=== PATIENT | male | born 1945 | race Hispanic/Latino ===

== ENCOUNTER 2016-11-20 00:25 | Emergency (ER) | payer OTHER ==
[2016-11-20 00:31] VITALS: BMI 28.1
[2016-11-20 00:39] VITALS: TEMP 98.3
[2016-11-20] MEDS ORDERED: Lidocaine 1% Inj (20ml) IJ STA (00:39)
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
--- NOTE | 2016-11-20 02:19 | CT ---
EXAM: CT Cervical Spine Without Intravenous Contrast CLINICAL HISTORY: 71 years old, male; Injury or trauma; Fall; Initial encounter; Blunt trauma; Additional info: Fall head trauma TECHNIQUE: Axial computed tomography images of the cervical spine without intravenous contrast. All CT scans at this facility use one or more dose reduction techniques, viz.: automated exposure control; ma/kV adjustment per patient size (including targeted exams where dose is matched to indication; i.e. head); or iterative reconstruction technique. Coronal and sagittal reformatted images were created and reviewed. COMPARISON: No relevant prior studies available. FINDINGS: Vertebrae: No acute fracture. Degenerative retrolithesis of C4 on C5 and C5 on C6. Degenerative retrolithesis of lower cervical spine. Facet osteoarthrosis within cervical spine. Discs/spinal canal/neural foramina: Mild degenerative disc disease at C3-C4, C6-C7 levels. Severe degenerative disc disease at C4-C5, C5-C6 levels. Disc herniations within mid to lower cervical spine, suboptimally evaluated. [id number]-[id number] indentation thecal sac/cord at C5-C6 level. Multilevel neuroforaminal narrowing. Soft tissues: Metallic density within LEFT neck. Vasculature: Atherosclerotic disease of visualized arteries. Lung apices: Unremarkable as visualized. IMPRESSION: 1. No fracture. 2. Incidental/non-acute findings are described above.
[2016-11-20] MEDS ORDERED: TDAP Vaccine 0.5 mL Syr IM ONE (02:36)
[2016-11-20 07:39] VITALS: BP 114/64; PULSE 88; RESP 18; O2SAT 99
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
--- NOTE | 2016-11-20 14:22 | CARD ---
APPROVED REPORT EKG Measurement Heart [id number] <Conclusion> Normal sinus rhythm Left anterior fascicular block Septal infarct, age undetermined Prolonged QT Abnormal ECG
== END 2016-11-20 07:38 | disposition home or self-care (01) ==
LOC: ED 00:25
DX: S01.21XA Laceration without foreign body of nose, initial encounter (principal); S01.511A Laceration without foreign body of lip, initial encounter; S20.212A Contusion of left front wall of thorax, initial encounter; W01.0XXA Fall on same level from slipping, tripping and stumbling without subsequent striking against object, initial encounter; Y92.410 Unspecified street and highway as the place of occurrence of the external cause; F10.129 Alcohol abuse with intoxication, unspecified; Z23 Encounter for immunization
CPT/HCPCS: 12011; 70450; 71020; 71100; 72125; 82948; 90471; 90715; 93005; 96372; 99282; J1885

== ENCOUNTER 2016-11-23 22:52 | Inpatient (IN) | payer OTHER ==
[2016-11-23 23:31] VITALS: BMI 27.3
--- NOTE | 2016-11-24 00:03 | ED PDOC ---
Arrival/HPI - General Historian: Patient, Family - History of Present Illness Time/Duration: 24 hours Symptom Onset: Sudden Symptom Course: Unchanged Quality: Aching, Stabbing Severity Level: 10 Activities at Onset: Rest, Light Context: Home - General Chief Complaint: Back Pain Time Seen by Provider: 11/23/16 23:16 - History of Present Illness Narrative History of Present Illness (Text): 11/24/16 00:00 Mr. 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 Patient states that yesterday he suddenly felt a sharp pain on his right posterior ribs while he was resting in bed. Patient reports it as a constant pain with no radiation and reports no alleviating/aggravating factors. He states that this pain is new and he doesn't believe that this is related to a fall he suffered last week. He denies fever, chills, headache, changes in his vision, chest pain, palpitations, SOB, cough, wheezing, abdominal pain, N/V, diarrhea, constipation, burning with urination, or any numbness/tingling/weakness of any extremity. (JOSH MONDRAGON) Past Medical History - Provider Review Nursing Documentation Reviewed: Yes - Travel History Have you recently traveled outside [place] w/in the past 3 mons?: No - Past History Past History: Non-Contributing - Infectious Disease Hx of Infectious Diseases: None - Tetanus Immunization Tetanus Immunization: Unknown - Cardiac Hx Cardiac Disorders: No - Pulmonary Hx Respiratory Disorders: No - Neurological Hx Neurological Disorder: No - HEENT Hx HEENT Disorder: Yes ([place]ING GLASSES) - Renal Hx Renal Disorder: No - Endocrine/Metabolic Hx Endocrine Disorders: Yes Hx Diabetes Mellitus Type 2: Yes - Hematological/Oncological Hx Blood Disorders: Yes Hx Cancer: Yes (liver) - Integumentary Hx Dermatological Disorder: No - Musculoskeletal/Rheumatological Hx Falls: No - Gastrointestinal Hx Gastrointestinal Disorders: No - Genitourinary/Gynecological Hx Genitourinary Disorders: No - Psychiatric Hx Psychophysiologic Disorder: No Hx Substance Use: No - Past Surgical History Past Surgical History: Non-Contributing - Surgical History Hx Orthopedic Surgery: Yes Other/Comment: Y90 liver radiation, last session october 2016 - Anesthesia Hx Anesthesia: Yes Hx Anesthesia Reactions: No Hx Malignant Hyperthermia: No - Suicidal Assessment Feels Threatened In Home Enviroment: No Family/Social History - Physician Review Nursing Documentation Reviewed: Yes Family/Social History: Unknown Family HX Smoking Status: Never Smoked Hx Alcohol Use: Yes Hx Substance Use: No Hx Substance Use Treatment: No Allergies/Home Meds Allergies/Adverse Reactions: Allergies No Known Allergies Allergy (Verified 11/23/16 23:36) Home Medications: Home Meds Medication Instructions Recorded Confirmed Unobtainable 11/24/16 11/24/16 Review of Systems - Physician Review All systems were reviewed & negative as marked: Yes - Review of Systems Constitutional: Normal. absent: Fevers, Night Sweats Eyes: Normal. absent: Vision Changes ENT: Normal Respiratory: Normal. absent: SOB, Cough, Wheezing Cardiovascular: Normal. absent: Chest Pain, Palpitations Gastrointestinal: Normal. absent: Abdominal Pain, Constipation, Diarrhea, Nausea, Vomiting Genitourinary Male: Normal. absent: Dysuria Musculoskeletal: Other (Right sided rib pain). absent: Normal, Back Pain, Neck Pain Skin: Normal. absent: Rash Neurological: Normal. absent: Headache Endocrine: Normal Hemo/Lymphatic: Normal Psychiatric: Normal Physical Exam Vital Signs Reviewed: Yes Temperature: Afebrile Blood Pressure: Normal Pulse: Regular Respiratory Rate: Normal Appearance: Positive for: Well-Appearing, Non-Toxic, Uncomfortable Pain Distress: Mild Mental Status: Positive for: Alert and Oriented X 3 - Systems Exam Head: Present: Atraumatic, Normocephalic Pupils: Present: PERRL Extroacular Muscles: Present: EOMI Conjunctiva: Present: Normal Mouth: Present: Moist Mucous Membranes Neck: Present: Normal Range of Motion, Trachea Midline. No: Meningeal Signs, MIDLINE TENDERNESS, Paraspinal Tenderness, JVD, Lymphadenopathy Respiratory/Chest: Present: Clear to Auscultation, Good Air Exchange, Tender to Palpation (Right posterior ribs 7-12 TTP). No: Respiratory Distress, Accessory Muscle Use, Wheezes, Decreased Breath Sounds, Rales, Retracting, Rhonchi, Tachypneic Cardiovascular: Present: Regular Rate and Rhythm, Normal S1, S2. No: Murmurs Abdomen: Present: Normal Bowel Sounds. No: Tenderness, Distention, Peritoneal Signs Back: Present: CVA Tenderness (Right), Paraspinal Tenderness (Right sided thoracic ). No: Normal Inspection, Midline Tenderness Upper Extremity: Present: Normal Inspection. No: Cyanosis, Edema Lower Extremity: Present: Normal Inspection. No: Edema Neurological: Present: GCS=15, CN II-XII Intact, Speech Normal Skin: Present: Warm, Dry, Normal Color. No: Rashes Psychiatric: Present: Alert, Oriented x 3, Normal Insight, Normal Concentration Vital Signs Temp Pulse Resp BP Pulse Ox 11/24/16 04:09 95 H 20 122/78 96 11/23/16 23:34 98.8 F 84 20 144/76 96 Medical Decision Making - Lab Interpretations I have reviewed the lab results: Yes - RAD Interpretation Svp Group Director: Radiologist ED Course and Treatment: Patient Seen With Resident: In agreement with resident note which contains more details about the patient. Patient was seen and evaluated with resident. Came up with plan and treatment together. 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 Paredes and patient to be admitted to his service with acute rib fracture. Patient is aware and agrees with plan. (JOSH MONDRAGON ) - Lab Interpretations Lab Results: 11/24/16 04:03 11/24/16 04:03 Lab Results 11/24/16 04:03: Sodium 139, Potassium 4.6, Chloride 104, Carbon Dioxide 25, Anion Gap 15, BUN 8, Creatinine 0.5 L, Est GFR ( Amer) > 60, Est GFR (Non -Af Amer) > 60, Random Glucose 375 H* D, Calcium 9.1, Total Bilirubin 1.3, AST 93 H, ALT 82 H, Alkaline Phosphatase 285 H, Total Protein 7.1, Albumin 3.4, Globulin 3.7, Albumin/Globulin Ratio 0.9 L 11/24/16 04:03: PT 16.8 H, INR 1.51 H, APTT 37.0 H 11/24/16 04:03: WBC 6.5 D, RBC 4.20, Hgb 13.5 L, Hct 39.2 L, MCV 93.3, MCH 32.1 , MCHC 34.4, RDW 15.4 H, Plt Count 152, MPV 11.0, Gran % 86.7 H, Lymph % (Auto) 8.1 L, [place] % (Auto) 5.0, Eos % (Auto) 0.0 L, Baso % (Auto) 0.2, Gran # 5.60, Lymph # 0.5 L, [place] # 0.3, Eos # 0.0, Baso # 0.01 - RAD Interpretation Narrative RAD Interpretations (Text): 11/24/16 05:21 Nondisplaced fracture of right 9th rib (JOSH MONDRAGON) Radiology Orders: 11/24/16 00:03 RIBS RIGHT [RAD] Stat 11/24/16 00:05 CHEST TWO VIEWS (PA/LAT) [RAD] Stat 11/24/16 01:43 CHEST W/O CONTRAST [CT] Stat - Medication Orders Current Medication Orders: Discontinued Medications Acetaminophen (Tylenol 325mg Tab) 975 mg PO STAT STA Stop: 11/24/16 00:06 Last Admin: 11/24/16 00:52 Dose: Benzonatate (Tessalon Perles) 100 mg PO ONCE ONE Stop: 11/24/16 01:54 Last Admin: 11/24/16 02:23 Dose: 100 mg Cyclobenzaprine HCl (Flexeril) 5 mg PO STAT STA Stop: 11/24/16 00:06 Last Admin: 11/24/16 00:26 Dose: 5 mg Insulin Human Regular (Humulin R) 4 units IV STAT STA Stop: 11/24/16 05:15 Ketorolac Tromethamine (Toradol) 30 mg IM STAT STA Stop: 11/24/16 00:06 Last Admin: 11/24/16 00:26 Dose: 30 mg MAR Pain Assessment Document 11/24/16 00:26 SS (Rec: 11/24/16 00:27 SS [id number]) Pain Reassessment Is this a pain reassessment? No Sleep Is patient sleeping during reassessment? No Presence of Pain Presence of Pain Yes Location Left, Right or Bilateral Right Upper or Lower Lower Pain Location Body Site Back IM Administration Charges Document 11/24/16 00:26 SS (Rec: 11/24/16 00:27 [id number] Charges for Administration # of IM Administrations 1 Ketorolac Tromethamine (Toradol) 30 mg IVP STAT STA Stop: 11/24/16 03:37 Last Admin: 11/24/16 04:18 Dose: 30 mg MAR Pain Assessment Document 11/24/16 04:18 SS (Rec: 11/24/16 04:18 [id number] Pain Reassessment Is this a pain reassessment? No Sleep Is patient sleeping during reassessment? No Presence of Pain Presence of Pain Yes Location Left, Right or Bilateral Right Pain Location Body Site Back IVP Administration Document 11/24/16 04:18 SS (Rec: 11/24/16 04:18 [id number] Charges for Administration # of IVP Administrations 1 Lidocaine (Lidoderm) 1 ea TD STAT STA Stop: 11/24/16 00:06 Last Admin: 11/24/16 00:26 Dose: 1 ea MAR Transdermal Patch Site Document 11/24/16 00:26 SS (Rec: 11/24/16 00:26 [id number] Transdermal Patch Site Transdermal Patch Site Right Lower Back Disposition/Present on Arrival - Present on Arrival Any Indicators Present on Arrival: No History of DVT/PE: No History of Uncontrolled Diabetes: No Urinary Catheter: No History of Decub. Ulcer: No History Surgical Site Infection Following: None - Disposition Have Diagnosis and Disposition been Completed?: Yes Disposition Time: 05:21 - Disposition Diagnosis: Right rib fracture Disposition: HOSPITALIZED Patient Problems: Current Active Problems Problem Status Onset Right rib fracture Acute Condition: STABLE Referrals: Bhavin Paredes MD [Primary Care Provider] - Follow up with primary Forms: [employer] ([place])
[2016-11-24] MEDS ORDERED: Lidocaine 5% Patch TD STA (00:05)
--- NOTE | 2016-11-24 03:20 | CT ---
EXAM: CT Chest Without Intravenous Contrast CLINICAL HISTORY: 71 years old, male; Pain; Other: Rib pain; Additional info: R rib pain TECHNIQUE: Axial computed tomography images of the chest without intravenous contrast. All CT scans at this facility use one or more dose reduction techniques, viz.: automated exposure control; ma/kV adjustment per patient size (including targeted exams where dose is matched to indication; i.e. head); or iterative reconstruction technique. MIP reconstructed images were created and reviewed. Coronal and sagittal reformatted images were created and reviewed. COMPARISON: None EXAM: FINDINGS: Lungs: No mass. No consolidation. Trace right-sided pleural effusion, with adjacent compressive atelectasis. Pleural spaces: No significant effusion. No pneumothorax. Heart: No cardiomegaly. No significant pericardial effusion. Vasculature: No aortic aneurysm. Lymph nodes: No enlarged lymph nodes. Bones: A fragment of increased attenuation is identified within the left lateral lower rib. A nondisplaced fracture is identified within the posterior lateral margin of the right ninth rib without significant callus formation. Within the upper abdomen: The liver is nodular in contour, and heterogeneous in attenuation.. IMPRESSION: Right ninth rib fracture, nondisplaced.
[2016-11-24 04:23] LABS: BASO # 0.01 K/mm3 (0.0-2.0); BASO % 0.2 % (0.0-3.0); GRAN # 5.6 (1.4-6.5); GRAN % 86.7 % (50.0-68.0); HEMATOCRIT 39.2 % (42.0-52.0); LYMPH # 0.5 (1.2-3.4); LYMPH % 8.1 % (22.0-35.0); MEAN CELL VOLUME 93.3 fl (80.0-105.0); MEAN CORPUSCULAR HEMOGLOBIN 32.1 pg (25.0-35.0); MEAN CORPUSCULAR HGB CONC 34.4 g/dl (31.0-37.0); MONO # 0.3 (0.1-0.6); RED CELL DISTRIBUTION WIDTH 15.4 % (11.5-14.5); WHITE BLOOD COUNT 6.5 10^3/ul (4.5-11.0)
[2016-11-24 04:32] LABS: INR 1.51 (0.93-1.08)
[2016-11-24 04:33] LABS: ALB/GLOB RATIO 0.9 (1.1-1.8); ALKALINE PHOSPHATASE 285 U/L (38-126); ALT/SGPT 82 U/L (7-56); AST/SGOT 93 U/L (17-59); BILIRUBIN,TOTAL 1.3 mg/dL (0.2-1.3); BLOOD UREA NITROGEN 8 mg/dL (7-21); CALCIUM 9.1 mg/dL (8.4-10.5); CARBON DIOXIDE 25 mmol/L (21-33); CHLORIDE 104 mmol/L (98-107); GFR AFRICAN-AMERICAN > 60; POTASSIUM 4.6 mmol/L (3.6-5.0); SODIUM 139 mmol/L (132-148); TOTAL PROTEIN 7.1 g/dL (5.8-8.3)
[2016-11-24 05:13] LABS: GLUCOSE,RANDOM 375 mg/dL (70-110)
[2016-11-24] MEDS ORDERED: Insulin Regular 1 UNITS/0.01 ML ML IV STA (05:14)
--- NOTE | 2016-11-24 08:35 | RAD ---
HISTORY: Right rib pain COMPARISON: No prior. TECHNIQUE: Chest PA and lateral FINDINGS: LUNGS: No active pulmonary disease. PLEURA: No significant pleural effusion identified. No pneumothorax apparent. CARDIOVASCULAR: Normal. OSSEOUS STRUCTURES: No significant abnormalities. VISUALIZED UPPER ABDOMEN: Normal. OTHER FINDINGS: None. IMPRESSION: No active disease.
[2016-11-24] MEDS ORDERED: Barium Sulfate Susp 2.1% w/v, 2.0% w/w 450 mL Bottle PO ONE (09:42)
[2016-11-24] MEDS: Thiamine 100 mg/ml Inj IM SCH (10:08)
--- NOTE | 2016-11-24 10:18 | RAD ---
PROCEDURE: HISTORY: Right rib pain COMPARISON: Chest x-ray 11/24/2016 TECHNIQUE: Three views FINDINGS: There is a posterior inferior right rib fracture number is indeterminate possibly the possibly the 9th or the 8th rib. A rudimentary ribs at the thoracolumbar junction are noted. The rib fracture is at a prominent right lateral marginal osteophyte at the inferior thoracic spine level. Gross deformity of the right glenohumeral joint -hypertrophic arthrosis and a prior remote trauma are suspect. The appearance of the lateral clavicle may be due to projectional effects IMPRESSION: Nondisplaced posterior inferior right rib fracture either the 9th or 8th rib. No gross pneumothorax Deformed right shoulder
[2016-11-24] MEDS: Insulin Reg-LOW-Coverage SC SCH ×2 (11:48→17:15)
[2016-11-24] MEDS ORDERED: Iohexol 350 MG/100 ML VIAL ONE (12:34)
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
[2016-11-25] MEDS: Insulin Reg-LOW-Coverage SC SCH ×5 (01:29→21:55)
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
[2016-11-25] MEDS: Thiamine 100 mg/ml Inj IM SCH (09:40)
[2016-11-25] MEDS: Oxycodone/Acetaminophen 5/325 mg Tab PO PRN (17:29)
--- NOTE | 2016-11-25 19:57 | PN ---
SUBJECTIVE: A 71-year-old white male, history of hepatoma, history of liver cirrhosis, history of non-insulin dependent diabetes mellitus. The patient came after losing the strength in his legs, falling, lacerating his nose and left face and injuring his ribs with right rib fractures. The patient has had a recent CT showing possible increasing size of the hepatic masses consistent with hepatoma. He was status post Y-90 treatment, also increasing periaortic and intraabdominal lymph node sizes. The patient's blood sugars are poorly controlled. His vital signs are stable today. He is still complaining of severe pain. The patient is scheduled for an MRI of the liver and abdomen. Plan is to control pain, physical therapy, eventually control of his blood sugar and eventually discharged home in good condition. PHYSICAL EXAMINATION: CHEST: Clear to auscultation and percussion. HEART: Regular sinus rhythm. ABDOMEN: Distended, obese, palpable liver edge, indurated liver and palpable right upper quadrant mass. EXTREMITIES: Without cyanosis, clubbing, or edema. Bhavin Paredes MD
[2016-11-26] MEDS: Oxycodone/Acetaminophen 5/325 mg Tab PO PRN ×2 (00:06→08:24)
[2016-11-26] MEDS: Insulin Reg-LOW-Coverage SC SCH (08:26)
[2016-11-26 08:43] VITALS: BP 128/83; PULSE 68; RESP 18; TEMP 97.8; O2SAT 97
[2016-11-26] MEDS: Thiamine 100 mg/ml Inj IM SCH (11:23)
--- NOTE | 2016-11-27 02:40 | DS ---
BRIEF HISTORY AND HOSPITAL COURSE: A 71-year-old white male status post fall, weakness in the legs, status post laceration in the nose and face, rib fractures, and history of hepatoma with enlarging intraabdominal lymph nodes and enlarging hepatic masses despite Y-90 treatment. The patient is stable. He still has pain. He will be discharged home in improved condition to follow up as outpatient. He does have poorly controlled diabetes mellitus which will be controlled with medications as an outpatient. He has less pain today. He is awake and alert, easily able to function. He will have an outpatient MRI, and he will be followed as an outpatient. He will be kept on pain medication until his fracture is healed. 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 Bhavin Paredes MD
== END 2016-11-26 12:01 | disposition home or self-care (01) | DRG 206 ==
LOC: ED 22:52 → ERH 11-24 05:19 → 5RNO 11-24 06:50
PROVIDERS: ADMIT Internal Medicine; ATTEND Internal Medicine
DX: S22.31XA Fracture of one rib, right side, initial encounter for closed fracture (principal); E11.65 Type 2 diabetes mellitus with hyperglycemia; S01.21XA Laceration without foreign body of nose, initial encounter; S01.412A Laceration without foreign body of left cheek and temporomandibular area, initial encounter; R53.1 Weakness; W19.XXXA Unspecified fall, initial encounter; Y92.511 Restaurant or cafe as the place of occurrence of the external cause; Z85.05 Personal history of malignant neoplasm of liver; Z79.84 Long term (current) use of oral hypoglycemic drugs

== ENCOUNTER 2017-02-11 12:03 | Emergency (ER) | payer OTHER ==
[2017-02-11 12:03] VITALS: BMI 27.3
[2017-02-11 12:24] VITALS: PULSE 100; RESP 20; TEMP 98.8; O2SAT 98
--- NOTE | 2017-02-11 12:41 | ED PDOC ---
Arrival/HPI - General Chief Complaint: Abdominal Pain Time Seen by Provider: 02/11/17 12:11 Historian: Patient - History of Present Illness Narrative History of Present Illness (Text): 02/11/17 12:41 71 year old male, whose past medical history includes Type 2 diabetes and liver cancer (on Y90 treatment), presents to the emergency department complaining of abdominal pain radiating to the right flank/upper back for the past 2 weeks. Patient reports a lump on the right upper abdomen that has been slowly growing and worsening in pain. Patient reports his last Y90 treatment was on October at [facility] [place]. He states he spoke with his PMD Dr. Paredes who prescribed a CT of the abdomen at [facility] [place] [facility] that has yet to be taken. Patient denies dyspnea, fever, chills, chest pain, nausea, vomiting, diarrhea, urinary symptoms, back pain, neck pain, headache, dizziness, or any other complaints. PMD: Dr. Paredes Oncologists: Dr. Rudolph Carrera Past Medical History - Provider Review Nursing Documentation Reviewed: Yes - Past History Past History: Non-Contributing - Infectious Disease Hx of Infectious Diseases: None - Tetanus Immunization Tetanus Immunization: Unknown - Cardiac Hx Cardiac Disorders: No - Pulmonary Hx Respiratory Disorders: No - Neurological Hx Neurological Disorder: No - HEENT Hx HEENT Disorder: Yes ([place]ING GLASSES) - Renal Hx Renal Disorder: No - Endocrine/Metabolic Hx Endocrine Disorders: Yes Hx Diabetes Mellitus Type 2: Yes - Hematological/Oncological Hx Blood Disorders: Yes Hx Cancer: Yes (liver) - Integumentary Hx Dermatological Disorder: No - Musculoskeletal/Rheumatological Hx Falls: No - Gastrointestinal Hx Gastrointestinal Disorders: No - Genitourinary/Gynecological Hx Genitourinary Disorders: No - Psychiatric Hx Psychophysiologic Disorder: No Hx Substance Use: No - Past Surgical History Past Surgical History: Non-Contributing - Surgical History Hx Orthopedic Surgery: Yes Other/Comment: Y90 liver radiation, last session october 2016 - Anesthesia Hx Anesthesia: Yes Hx Anesthesia Reactions: No Hx Malignant Hyperthermia: No - Suicidal Assessment Feels Threatened In Home Enviroment: No Family/Social History - Physician Review Nursing Documentation Reviewed: Yes Family/Social History: No Known Family HX Smoking Status: Never Smoked Hx Alcohol Use: Yes Hx Substance Use: No Hx Substance Use Treatment: No Allergies/Home Meds Allergies/Adverse Reactions: Allergies No Known Allergies Allergy (Verified 11/23/16 23:36) Home Medications: Home Meds Medication Instructions Recorded Confirmed Alogliptin Alonso/Metformin HCl 12.5 mg PO BID 11/24/16 02/11/17 Linagliptin/Metformin HCl 2.5 mg PO BID 11/24/16 02/11/17 [Jentadueto 2.5 mg-1000 mg Tab] Omeprazole 40 mg PO DAILY 11/24/16 02/11/17 Review of Systems - Physician Review All systems were reviewed & negative as marked: Yes - Review of Systems Constitutional: absent: Fevers Cardiovascular: absent: Chest Pain Physical Exam - Physical Exam Narrative Physical Exam (Text): Constitutional: No acute distress. Head: Normocephalic. Atraumatic. Eyes: PERRL. ENT: Moist mucous membranes. Neck: Supple. Cardiovascular: Regular rate. Chest: No tenderness. Respiratory: Clear to auscultation bilaterally. GI: Soft mass overlying right upper quadrant and right flank/ upper back. Back: No CVA tenderness. Musculoskeletal: No tenderness or swelling of extremities. Skin: No rash. Neurologic: Alert, no focal deficit. Vital Signs Temp Pulse Resp BP Pulse Ox 02/11/17 12:21 98.8 F 100 H 20 136/84 98 02/11/17 12:03 98.8 F 95 H 19 120/76 98 Medical Decision Making ED Course and Treatment: 02/11/17 12:41 Plan: -- CT Chest, ABD, Pelvis w/IV COntrast -- Labs -- Reassess and disposition Progress Notes: IMPRESSION: Bony destruction of the right 8th rib with a large chest wall mass consistent with metastatic disease. Increased heterogeneity of the liver consistent with cirrhosis and regenerative nodules. Hepatocellular carcinoma cannot be excluded. Increasing periportal and peripancreatic adenopathy Discussed results of labs and CT with Dr. Paredes. No indication for admission at this time. Will discharge to f/u with Dr. Paredes and oncologist Dr. Carrera. - Lab Interpretations Lab Results: 02/11/17 13:25 02/11/17 13:25 Lab Results 02/11/17 13:25: Sodium 143, Potassium 4.4, Chloride 102, Carbon Dioxide 30, Anion Gap 15, BUN 5 L, Creatinine 0.5 L, Est GFR ( Amer) > 60, Est GFR ( Non-Af Amer) > 60, Random Glucose 167 H, Calcium 9.6, Total Bilirubin 3.0 H, AST 84 H, ALT 71 H, Alkaline Phosphatase 233 H, Total Protein 7.8, Albumin 3.6, Globulin 4.3, Albumin/Globulin Ratio 0.8 L, Lipase 93 02/11/17 13:25: WBC 6.6, RBC 4.30, Hgb 13.8 L, Hct 40.1 L, MCV 93.3, MCH 32.1, MCHC 34.4, RDW 14.4, Plt Count 129, MPV 10.7, Gran % 65.2, Lymph % (Auto) 17.9 L , Conway % (Auto) 10.1 H, Eos % (Auto) 5.3 H, Baso % (Auto) 1.5, Gran # 4.33, Lymph # 1.2, Conway # 0.7 H, Eos # 0.4, Baso # 0.10 I have reviewed the lab results: Yes - RAD Interpretation Radiology Orders: 02/11/17 12:41 CHEST,ABD,PEL W/IV CONT ONLY [CT] Stat - Medication Orders Current Medication Orders: Discontinued Medications Ketorolac Tromethamine (Toradol) 30 mg IVP STAT STA Stop: 02/11/17 13:16 Last Admin: 02/11/17 13:55 Dose: 30 mg MAR Pain Assessment Document 02/11/17 13:55 SF (Rec: 02/11/17 13:55 [id number] Pain Reassessment Is this a pain reassessment? Yes Sleep Is patient sleeping during reassessment? No Presence of Pain Presence of Pain Yes IVP Administration Document 02/11/17 13:55 SF (Rec: 02/11/17 13:55 [id number] Charges for Administration # of IVP Administrations 1 - Scribe Statement The provider has reviewed the documentation as recorded by the Cuong Adler Provider Scribe Attestation: All medical record entries made by the Gavinoibchema were at my direction and personally dictated by me. I have reviewed the chart and agree that the record accurately reflects my personal performance of the history, physical exam, medical decision making, and the department course for this patient. I have also personally directed, reviewed, and agree with the discharge instructions and disposition. Disposition/Present on Arrival - Present on Arrival Any Indicators Present on Arrival: No History of DVT/PE: No History of Uncontrolled Diabetes: No Urinary Catheter: No History of Decub. Ulcer: No History Surgical Site Infection Following: None - Disposition Have Diagnosis and Disposition been Completed?: Yes Diagnosis: Metastatic cancer Disposition: HOME/ ROUTINE Disposition Time: 15:23 Patient Plan: Discharge Patient Problems: Current Active Problems Problem Status Onset Metastatic cancer Acute Condition: STABLE Discharge Instructions (ExitCare): Bone Metastasis (ED) Referrals: Bhavin Paredes MD [Primary Care Provider] - Follow up with primary Forms: [employer] (Indonesian)
[2017-02-11 13:34] LABS: BASO # 0.1 K/mm3 (0.0-2.0); BASO % 1.5 % (0.0-3.0); EOS # 0.4 (0.0-0.7); EOS % 5.3 % (1.5-5.0); GRAN # 4.33 (1.4-6.5); GRAN % 65.2 % (50.0-68.0); HEMOGLOBIN 13.8 g/dL (14.0-18.0); LYMPH # 1.2 (1.2-3.4); LYMPH % 17.9 % (22.0-35.0); MEAN CELL VOLUME 93.3 fl (80.0-105.0); MEAN CORPUSCULAR HEMOGLOBIN 32.1 pg (25.0-35.0); MEAN CORPUSCULAR HGB CONC 34.4 g/dl (31.0-37.0); MEAN PLATELET VOLUME 10.7 fl (7.0-11.0); MONO # 0.7 (0.1-0.6); MONO % 10.1 % (1.0-6.0); RBC 4.3 10^6/uL (3.5-6.1); RED CELL DISTRIBUTION WIDTH 14.4 % (11.5-14.5); WHITE BLOOD COUNT 6.6 10^3/ul (4.5-11.0)
[2017-02-11] MEDS ORDERED: Iohexol 350 MG/100 ML VIAL ONE (13:38)
[2017-02-11 13:47] LABS: ALB/GLOB RATIO 0.8 (1.1-1.8); ALBUMIN 3.6 g/dL (3.0-4.8); ALT/SGPT 71 U/L (7-56); AST/SGOT 84 U/L (17-59); BLOOD UREA NITROGEN 5 mg/dL (7-21); CALCIUM 9.6 mg/dL (8.4-10.5); GFR AFRICAN-AMERICAN > 60; GFR NON-AFRICAN AMERICAN > 60; LIPASE 93 U/L (23-300)
--- NOTE | 2017-02-11 15:09 | CT ---
PROCEDURE: CT Chest, Abdomen and Pelvis with intravenous contrast HISTORY: mass overlying RUQ/R upper flank COMPARISON: CT 11/24/2016 TECHNIQUE: IV dose administered: 100 cc of Omni 350 Radiation dose: Total exam DLP = 903 mGy-cm. This CT exam was performed using one or more of the following dose reduction techniques: Automated exposure control, adjustment of the mA and/or kV according to patient size, and/or use of iterative reconstruction technique. FINDINGS: CT CHEST WITH CONTRAST: LUNGS: Clear. No nodule, mass or consolidation. MEDIASTINUM: Unremarkable. Normal caliber aorta and pulmonary arterial trunk. No aortic dissection. Normal size heart. Coronary artery calcifications LYMPH NODES: Unremarkable. PLEURA: Unremarkable. No pneumothorax. No pleural fluid. BONES: There is a large chest wall mass at the right lung base measuring 10 cm wide by 4.2 cm AP. There is bony destruction of the right 8th rib. This was not present on the previous exam. Finding is best seen on image 76 of series 3 OTHER FINDINGS: None. CT ABDOMEN AND PELVIS: LIVER: The liver has a heterogeneous nodular appearance consistent with cirrhosis. An underlying neoplasm cannot be excluded. The liver has a more heterogeneous appearance than on the previous study. GALLBLADDER AND BILE DUCTS: Unremarkable. PANCREAS: Unremarkable. No gross lesion or ductal dilatation. SPLEEN: There is a band of low density running transversely across the spleen which could represent a splenic infarct. This is seen on image 50 series 6. This is a new finding ADRENALS: Unremarkable. No mass. KIDNEYS AND URETERS: Unremarkable. No hydronephrosis. No solid mass. VASCULATURE: Unremarkable. No aortic aneurysm. BOWEL: Unremarkable. No obstruction. No gross mural thickening. There is severe diverticulosis of the sigmoid colon APPENDIX: Normal appendix. PERITONEUM: Unremarkable. No free fluid. No free air. LYMPH NODES: Multiple large periportal and peripancreatic lymph nodes are seen. The largest noted can be seen on image 36 series 6 measuring 3 cm in diameter. These lymph nodes have increased in size. BLADDER: Unremarkable. REPRODUCTIVE: Unremarkable. BONES: No acute fracture. OTHER FINDINGS: None. IMPRESSION: Bony destruction of the right 8th rib with a large chest wall mass consistent with metastatic disease. Increased heterogeneity of the liver consistent with cirrhosis and regenerative nodules. Hepatocellular carcinoma cannot be excluded. Increasing periportal and peripancreatic adenopathy
[2017-02-11 15:34] VITALS: BP 122/76
== END 2017-02-11 15:34 | disposition home or self-care (01) ==
LOC: ED 12:03
DX: C79.51 Secondary malignant neoplasm of bone (principal); Z85.05 Personal history of malignant neoplasm of liver; E11.9 Type 2 diabetes mellitus without complications
CPT/HCPCS: 71260; 74177; 80053; 83690; 85025; 96374; 99283; J1885; Q9967

== ENCOUNTER 2017-03-03 12:25 | Day surgery (SDC) | payer MEDICARE, OTHER ==
[2017-03-02 10:56] VITALS: BMI 24.3
[2017-03-03 13:07] LABS: BASO # 0.02 K/mm3 (0.0-2.0); BASO % 0.2 % (0.0-3.0); EOS # 0.3 (0.0-0.7); EOS % 3.1 % (1.5-5.0); GRAN # 5.88 (1.4-6.5); GRAN % 67.9 % (50.0-68.0); LYMPH # 1.6 (1.2-3.4); LYMPH % 18.9 % (22.0-35.0); MEAN CELL VOLUME 95.6 fl (80.0-105.0); MEAN CORPUSCULAR HEMOGLOBIN 32.8 pg (25.0-35.0); MEAN CORPUSCULAR HGB CONC 34.3 g/dl (31.0-37.0); MEAN PLATELET VOLUME 11.5 fl (7.0-11.0); MONO # 0.9 (0.1-0.6); MONO % 9.9 % (1.0-6.0); RBC 4.27 10^6/uL (3.5-6.1); RED CELL DISTRIBUTION WIDTH 15.7 % (11.5-14.5); WHITE BLOOD COUNT 8.7 10^3/ul (4.5-11.0)
[2017-03-03 13:14] LABS: INR 1.6 (0.93-1.08); PROTHROMBIN TIME 18.6 SECONDS (9.4-12.5)
[2017-03-03 13:23] LABS: BLOOD UREA NITROGEN 8 mg/dL (7-21); CALCIUM 9.7 mg/dL (8.4-10.5); GFR AFRICAN-AMERICAN > 60; GFR NON-AFRICAN AMERICAN > 60
[2017-03-03] MEDS ORDERED: Midazolam 2 MG/2 ML VIAL ONE (16:23)
[2017-03-03] MEDS ORDERED: Oxycodone/Acetaminophen 5/325 mg Tab PO PRN (17:14)
[2017-03-03] MEDS ORDERED: Sodium Chloride 0.45% 1,000 ML IV SCH (17:15)
[2017-03-03] MEDS ORDERED: Morphine 4 mg/ml ISec IVP PRN (17:17)
[2017-03-03] MEDS ORDERED: Morphine 2 mg/ml ISec ONE (18:00)
[2017-03-03 18:24] VITALS: PULSE 81; RESP 20; TEMP 97.5; O2SAT 95
--- NOTE | 2017-03-03 18:25 | CT ---
PROCEDURE: CT guided right 8 rib biopsy. HISTORY: Stage IV hepatoma. Destructive large right 8th rib lesion. Evaluate for metastatic disease. PHYSICIAN(S): Axel Hopper MD. TECHNIQUE: The relative risks and indications of the procedure were explained to the patient and consent obtained. The patient was placed prone on the CT scanner and preliminary images through the 8 chest obtained. Conscious sedation and monitoring were provided throughout the procedure by a nurse. There is a destructive 4.2 x 15.1 cm soft tissue mass involving the right 8th rib posteriorly.. A oblique posterior approach was selected and the area prepped and draped in the usual sterile fashion. 1% Xylocaine was used to anesthetize the skin and soft tissues. A 17-gauge guiding needle was advanced into the large right 8 rib mass. Its position was confirmed with CT. Using coaxial technique, multiple core biopsies were obtained. The postprocedure images show no evidence of pneumothorax or significant hemorrhage.. IMPRESSION: 1. CT-guided right 8th rib biopsy as described above.
[2017-03-03 18:44] VITALS: BP 137/81
--- NOTE | 2017-03-04 10:37 | RAD ---
HISTORY: Status post right 8th rib biopsy. Relevant interventional procedure(s): 03/03/2017 CT biopsy of destructive right rib lesion, 8th rib. COMPARISON: 11/24/2016 CT thorax. 02/11/2017 CT thorax FINDINGS: LUNGS: No active pulmonary disease. PLEURA: No significant pleural effusion identified, no pneumothorax apparent. CARDIOVASCULAR: No radiographic findings to suggest acute or significant cardiovascular disease. OSSEOUS STRUCTURES: No significant abnormalities. VISUALIZED UPPER ABDOMEN: Normal. OTHER FINDINGS: None. IMPRESSION: No active disease. Status post biopsy of destructive lesion posterior lateral right 8th rib. No pneumothorax or other adverse findings. Limitations of the current examination: Portable technique and suboptimal inspiratory effort.
== END 2017-03-03 19:00 | disposition home or self-care (01) ==
LOC: SDS 12:25
PROVIDERS: ATTEND Radiology Vascular & Interventional Radiology
DX: C79.51 Secondary malignant neoplasm of bone (principal); C22.0 Liver cell carcinoma
CPT/HCPCS: 20225; 36415; 71045; 77012; 80048; 85025; 85610; 85730; 88305; J2250; J2270 ×2; J2405; J3010; J7030

== ENCOUNTER 2017-03-14 18:07 | Observation (INO) | payer OTHER ==
[2017-03-14 18:08] VITALS: BMI 24.3
[2017-03-14] MEDS ORDERED: HYDROmorphone 1 mg/ml ISec IVP STA ×3 (18:34→21:15)
[2017-03-14 18:44] LABS: BASO # 0.13 K/mm3 (0.0-2.0); BASO % 1.2 % (0.0-3.0); EOS # 0.3 (0.0-0.7); EOS % 2.5 % (1.5-5.0); GRAN # 7.1 (1.4-6.5); GRAN % 68.1 % (50.0-68.0); HEMOGLOBIN 14.4 g/dL (14.0-18.0); LYMPH # 1.6 (1.2-3.4); LYMPH % 15.7 % (22.0-35.0); MEAN CELL VOLUME 94.6 fl (80.0-105.0); MEAN CORPUSCULAR HEMOGLOBIN 33.6 pg (25.0-35.0); MEAN CORPUSCULAR HGB CONC 35.5 g/dl (31.0-37.0); MEAN PLATELET VOLUME 11.1 fl (7.0-11.0); MONO # 1.3 (0.1-0.6); MONO % 12.5 % (1.0-6.0); RBC 4.29 10^6/uL (3.5-6.1); RED CELL DISTRIBUTION WIDTH 16.3 % (11.5-14.5); WHITE BLOOD COUNT 10.4 10^3/ul (4.5-11.0)
[2017-03-14] MEDS ORDERED: HYDROmorphone 2 mg/ml ISec ONE (18:44)
[2017-03-14] MEDS ORDERED: HYDROmorphone 2 mg/ml ISec IVP STA (18:48)
--- NOTE | 2017-03-14 18:52 | ED PDOC ---
Arrival/HPI - General Chief Complaint: Chest Pain Time Seen by Provider: 03/14/17 18:12 Historian: Patient - History of Present Illness Narrative History of Present Illness (Text): 03/14/17 18:15 Obed Ku is a 71 year old male, who presents to the emergency department complaining of 6 week history of worsening RUQ and right-sided chest pain with associated increasing shortness of breath. Patient has had a CT scan of the chest, abdomen, and pelvis about a month ago which showed a RUQ mass in ribs. Patient underwent a biopsy on March 06 with results showing metastatic hepatoma. Patient states that he is scheduled start radiaton therapy in 4 days and has not had chemotherapy. Patient is on pain medication to no relief. No other complaints at this time. Patient is not a smoker or a drinker. 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 Scheduled to begin radiation therapy in 4 days. He is taking by mouth narcotic pain medication without relief. Past Medical History - Provider Review Nursing Documentation Reviewed: Yes - Past History Past History: Non-Contributing - Infectious Disease Hx of Infectious Diseases: None - Tetanus Immunization Tetanus Immunization: Unknown - Cardiac Hx Pacemaker: No - Pulmonary Hx Respiratory Disorders: Yes Other/Comment: lung ca - Neurological Hx Paralysis: No - HEENT Hx HEENT Disorder: Yes (READING GLASSES) - Renal Hx Renal Disorder: No - Endocrine/Metabolic Hx Endocrine Disorders: Yes Hx Diabetes Mellitus Type 2: Yes - Hematological/Oncological Hx Blood Disorders: No - Integumentary Hx Dermatological Disorder: No - Musculoskeletal/Rheumatological Hx Musculoskeletal Disorders: Yes (LEFT CARPALTUNNEL) - Gastrointestinal Hx Gastrointestinal Disorders: No - Genitourinary/Gynecological Hx Genitourinary Disorders: No - Psychiatric Hx Psychophysiologic Disorder: No Hx Substance Use: No - Past Surgical History Past Surgical History: Non-Contributing - Surgical History Hx Orthopedic Surgery: Yes Other/Comment: Y90 liver radiation, last session october 2016 - Anesthesia Hx Anesthesia Reactions: No Hx Malignant Hyperthermia: No - Suicidal Assessment Feels Threatened In Home Enviroment: No Family/Social History - Physician Review Nursing Documentation Reviewed: Yes Family/Social History: No Known Family HX Smoking Status: Never Smoked Hx Alcohol Use: Yes ( PAST USE"NOT FOR A LONG TIME") Hx Substance Use: No Hx Substance Use Treatment: No Allergies/Home Meds Allergies/Adverse Reactions: Allergies No Known Allergies Allergy (Verified 03/14/17 18:19) Home Medications: Home Meds Medication Instructions Recorded Confirmed Unobtainable 03/14/17 03/14/17 Review of Systems - Physician Review All systems were reviewed & negative as marked: Yes - Review of Systems Constitutional: absent: Fevers, Night Sweats Eyes: absent: Vision Changes ENT: absent: Hearing Changes Respiratory: SOB Cardiovascular: Chest Pain (RUQ and right sided chest pain) Gastrointestinal: absent: Abdominal Pain Genitourinary Male: absent: Dysuria Musculoskeletal: absent: Arthralgias Skin: absent: Rash, Pruritis Neurological: absent: Headache, Dizziness Endocrine: absent: Diaphoresis Hemo/Lymphatic: absent: Adenopathy Psychiatric: absent: Anxiety, Depression Physical Exam Vital Signs Reviewed: Yes Vital Signs Temp Pulse Resp BP Pulse Ox 03/14/17 18:44 98.0 F 84 24 126/63 95 Temperature: Afebrile Blood Pressure: Normal Pulse: Regular Respiratory Rate: Normal Appearance: Positive for: Well-Appearing, Non-Toxic, Uncomfortable Pain Distress: Severe Mental Status: Positive for: Alert and Oriented X 3 - Systems Exam Head: Present: Atraumatic, Normocephalic Pupils: Present: PERRL Extroacular Muscles: Present: EOMI Conjunctiva: Present: Normal Ears: Present: NORMAL TM, Normal Canal. No: Erythema Mouth: Present: Dry Pharnyx: No: ERYTHEMA, EXUDATE, TONSILS ENLARGED Neck: Present: Normal Range of Motion Respiratory/Chest: Present: Decreased Breath Sounds, Rales (bibasalar rales), Tender to Palpation (Tender mass to RUQ and right anterior lower ribs). No: Wheezes, Rhonchi Cardiovascular: Present: Regular Rate and Rhythm, Normal S1, S2. No: Murmurs Abdomen: Present: Tenderness (Severe right upper quadrant and right lower chest tenderness), Normal Bowel Sounds. No: Distention, Peritoneal Signs, Rebound, Guarding Back: Present: Normal Inspection Upper Extremity: Present: Normal Inspection. No: Cyanosis, Edema Lower Extremity: Present: Swelling (+1 swelling to right LE; none to LLE) Neurological: Present: GCS=15, CN II-XII Intact, Speech Normal, Motor Func Grossly Intact Skin: Present: Warm, Dry, Normal Color. No: Rashes Psychiatric: Present: Alert, Oriented x 3, Normal Insight, Normal Concentration Medical Decision Making ED Course and Treatment: 03/14/17 18:40 Impression: 71 year old male complaining of 6 week history of worsening RUQ and right-sided chest pain with associated increasing shortness of breath. Plan: -- EKG -- Chest X-ray -- Labs -- Reassess and disposition Prior Visits: Notes and results from previous visits were reviewed. Patient was last seen in the emergency department on 02/11/17 for abdominal pain radiating to the right flank/upper back. Patient was discharged home. Progress Notes: 03/14/17 18:42 Had a long discussion with daughter about the how serious metastatic hepatoma is. She understand and spoke with sister in [place] to let her know as well. \\ 03/14/17 20:15 EKG shows normal sinus rhythm rate approximately 95 with unifocal PVCs and poor R-wave progression and no acute ST or T-wave changes 03/14/17 20:16 Discussed with 's DYNAMICS AX TECHNICAL ARCHITECT and patient will be admitted to the hospital for pain management of his metastatic hepatoma.. - Lab Interpretations Lab Results: 03/14/17 18:29 03/14/17 18:29 Lab Results 03/14/17 18:29: Sodium 137, Potassium 4.3, Chloride 104, Carbon Dioxide 20 L, Anion Gap 17, BUN 6 L, Creatinine 0.5 L, Est GFR ( Amer) > 60, Est GFR ( Non-Af Amer) > 60, Random Glucose 189 H, Calcium 9.1, Total Bilirubin 3.5 H, AST 148 H D, ALT 67 H, Alkaline Phosphatase 253 H, Lactate Dehydrogenase 1080 H , Total Creatine Kinase 106, Troponin I < 0.01, Total Protein 7.5, Albumin 3.2, Globulin 4.4, Albumin/Globulin Ratio 0.7 L 03/14/17 18:29: WBC 10.4, RBC 4.29, Hgb 14.4, Hct 40.6 L, MCV 94.6, MCH 33.6, MCHC 35.5, RDW 16.3 H, Plt Count 191, MPV 11.1 H, Gran % 68.1 H, Lymph % (Auto) 15.7 L, [place] % (Auto) 12.5 H, Eos % (Auto) 2.5, Baso % (Auto) 1.2, Gran # 7.10 H , Lymph # (Auto) 1.6, [place] # (Auto) 1.3 H, Eos # (Auto) 0.3, Baso # (Auto) 0.13 I have reviewed the lab results: Yes - RAD Interpretation Radiology Orders: 03/14/17 18:34 CHEST PORTABLE [RAD] Stat Chest 1 view shows no infiltrate effusion or cardiomegaly. 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 Yes Sleep Is patient sleeping during reassessment? No Presence of Pain Presence of Pain Yes Pain Scale Used Pain Scale Used Numeric IVP Administration Document 03/14/17 19:37 SF (Rec: 03/14/17 19:37 SF [facility] [email or web address] Charges for Administration # of IVP Administrations 1 Hydromorphone HCl (Dilaudid) 1 mg IVP STAT STA Stop: 03/14/17 20:13 Sodium Chloride (Sodium Chloride 0.9%) 500 mls @ 500 mls/hr IV ONCE ONE Stop: 03/14/17 20:23 Last Admin: 03/14/17 19:36 Dose: 500 mls/hr eMAR Start Stop Document 03/14/17 19:36 SF (Rec: 03/14/17 19:37 SF [facility] [id number] Intravenous Solution Start Date 03/14/17 Start Time 19:37 End Date 03/14/17 End time 20:37 Total Infusion Time 60 Ondansetron HCl (Zofran Inj) 4 mg IVP ONCE ONE Stop: 03/14/17 18:35 Last Admin: 03/14/17 18:54 Dose: 4 mg IVP Administration Document 03/14/17 18:54 SF (Rec: 03/14/17 18:55 SF [facility] [email or web address] Charges for Administration # of IVP Administrations 1 - Scribe Statement The provider has reviewed the documentation as recorded by the Scribe Marisela Cervantes Provider Scribe Attestation: All medical record entries made by the Scribe were at my direction and personally dictated by me. I have reviewed the chart and agree that the record accurately reflects my personal performance of the history, physical exam, medical decision making, and the department course for this patient. I have also personally directed, reviewed, and agree with the discharge instructions and disposition. Disposition/Present on Arrival - Present on Arrival Any Indicators Present on Arrival: No History of DVT/PE: No History of Uncontrolled Diabetes: No Urinary Catheter: No History of Decub. Ulcer: No History Surgical Site Infection Following: None - Disposition Have Diagnosis and Disposition been Completed?: Yes Diagnosis: Hepatoma Disposition: HOSPITALIZED Disposition Time: 20:17 Patient Plan: Observation Patient Problems: Current Active Problems Problem Status Onset Hepatoma Acute Condition: FAIR Referrals: Bhavin Paredes MD [Primary Care Provider] - Follow up with primary Forms: Leatt (Haitian)
--- NOTE | 2017-03-14 19:02 | RAD ---
HISTORY: Chest pain. COMPARISON: 03/03/2017 FINDINGS: LUNGS: No active pulmonary disease. PLEURA: No significant pleural effusion identified, no pneumothorax apparent. CARDIOVASCULAR: Cardiomegaly. No evidence of acute, significant cardiovascular disease. OSSEOUS STRUCTURES: No significant abnormalities. VISUALIZED UPPER ABDOMEN: Normal. OTHER FINDINGS: None. IMPRESSION: No active disease. No significant interval change compared to the prior examination(s).
[2017-03-14 19:08] LABS: ALB/GLOB RATIO 0.7 (1.1-1.8); ALBUMIN 3.2 g/dL (3.0-4.8); ALT/SGPT 67 U/L (7-56); AST/SGOT 148 U/L (17-59); BLOOD UREA NITROGEN 6 mg/dL (7-21); CALCIUM 9.1 mg/dL (8.4-10.5); GFR AFRICAN-AMERICAN > 60; GFR NON-AFRICAN AMERICAN > 60
[2017-03-14] MEDS ORDERED: Sodium Chloride 0.9% 500 ML IV ONE ×2 (19:24→21:14)
[2017-03-14] MEDS ORDERED: HYDROmorphone 0.5 mg/0.5 ml ISec IVP STA ×3 (19:25→21:16)
[2017-03-14 19:30] LABS: TROPONIN I < 0.01 ng/mL
[2017-03-15 08:15] VITALS: RESP 20
[2017-03-15] MEDS ORDERED: HYDROmorphone 2 mg/ml ISec IM PRN (08:33)
[2017-03-15] MEDS: Pantoprazole 40 mg EC Tab PO SCH (09:19)
[2017-03-15] MEDS: Sodium Chloride 0.45% 1,000 ML IV SCH ×2 (09:19→20:30)
[2017-03-15] MEDS: Insulin Reg-LOW-Coverage SC SCH ×3 (11:30→21:59)
--- NOTE | 2017-03-15 12:31 | CARD ---
APPROVED REPORT EKG Measurement Heart [id number] NH 130P-2 [id number] <Conclusion> Sinus rhythm with fusion complexes and premature atrial complexes Left axis deviation Prolonged QT Abnormal ECG
--- NOTE | 2017-03-15 18:37 | HP ---
BRIEF HISTORY AND HOSPITAL COURSE: A 71-year-old white male with a history of hepatocellular carcinoma with metastasis to the right rib cage and flank. The patient is status post Y-90 treatment and recently was seen by Oncology at the [facility] ([place], [place]) and was also seen for palliative radiation in [facility]. The patient has been marked, but not started radiation, was brought to the emergency room by his daughter because of severe intractable pain and shortness of breath. The patient's x-ray was clear. He does have enlarged mass in the right upper quadrant on palpable lung examination. PHYSICAL EXAMINATION: GENERAL: A well-developed, well-nourished white male in obvious pain, in distress. HEENT: Essentially within normal limits except for some jaundiced sclerae and skin is somewhat jaundiced. Clear conjunctivae. HEART: Regular sinus rhythm. CHEST: Clear to auscultation, consistent with large palpable mass in the right upper quadrant extending to the right flank. There is tenderness in the right upper quadrant and on deep inspiration. EXTREMITIES: No cyanosis, clubbing or edema. NEUROLOGIC: The patient is grossly intact. IMPRESSION: Jaundice, hepatocellular mass with metastasis, severe pain and shortness of breath in a 71-year-old white male. Bhavin Paredes MD
[2017-03-16] MEDS: Sodium Chloride 0.45% 1,000 ML IV SCH ×2 (04:50→15:57)
[2017-03-16] MEDS: HYDROmorphone 0.5 mg/0.5 ml ISec IM PRN ×4 (05:57→20:30)
[2017-03-16] MEDS: Insulin Reg-LOW-Coverage SC SCH ×4 (08:05→22:36)
--- NOTE | 2017-03-16 08:50 | PN ---
DATE: SUBJECTIVE: A 71-year-old white male, admitted to the hospital with intractable pain, metastatic hepatoma, metastatic to the right chest wall and rib. The patient was dehydrated. He is receiving IV fluids. Vital signs are stable today. He is also receiving pain medication. Plan is to ambulate and most likely discharge over the next 24 hours to start radiation therapy. Physical examination is unchanged. There was a large mass palpable in the right upper quadrant and also in the right lower rib cage. Chest is clear to auscultation. Bowel sounds are normoactive. Neurologically grossly intact. The patient is jaundiced. Bhavin Paredes MD
[2017-03-16] MEDS: Pantoprazole 40 mg EC Tab PO SCH (09:52)
[2017-03-17] MEDS: Sodium Chloride 0.45% 1,000 ML IV SCH ×2 (01:10→10:05)
[2017-03-17] MEDS: HYDROmorphone 2 mg/ml ISec IM PRN ×3 (03:07→14:55)
[2017-03-17] MEDS: Insulin Reg-LOW-Coverage SC SCH ×2 (08:23→12:33)
[2017-03-17] MEDS: Pantoprazole 40 mg EC Tab PO SCH (10:04)
[2017-03-17 17:32] VITALS: BP 116/72; PULSE 80; TEMP 97.7; O2SAT 98
== END 2017-03-17 17:26 | disposition home or self-care (01) ==
LOC: ED 18:07 → ERH 20:13 → 3RNO 23:27
PROVIDERS: ADMIT Internal Medicine; ATTEND Internal Medicine
DX: G89.3 Neoplasm related pain (acute) (chronic) (principal); C22.0 Liver cell carcinoma; C79.51 Secondary malignant neoplasm of bone; E86.0 Dehydration
CPT/HCPCS: 71045; 80053; 82550; 82948; 83615; 84484; 85025; 93005; 96361; 96372; 96374; 96375; 96376; 97116; 97162; 99285; G0378; G8978; G8979; J1170; J2405; J7030; J7040

== ENCOUNTER 2017-03-26 10:33 | Inpatient (IN) | payer OTHER, MEDICARE ==
[2017-03-26 10:34] VITALS: BMI 24.3
--- NOTE | 2017-03-26 11:53 | ED PDOC ---
Arrival/HPI - General Chief Complaint: Lower Extremity Problem/Injury Time Seen by Provider: 03/26/17 11:47 Historian: Patient, Family (daughter/sister) - History of Present Illness Narrative History of Present Illness (Text): 03/26/17 11:49 pt p/w + 2 weeks onset of worsening b/l lower extremity swelling as per patient and 1 week onset of diffuse abd swelling; per pt's daughter, she noticed patient leg swelling x 3 days, + exertional sob/weakness, pt is easily fatigued ; per family, pt is easily fatigued since 4 days; + coughing/intermittent sputumn production, no fever/chills/sweats; no cp, + sob, no palpitations, + intermittent abd pain (chronic, due to liver cancer); pt just finished first week of radiation txt last week; pt states no urinary/bowel changes, no bleeding , no fall/trauma/sick contact, no travel; pt denied LOC, ? lightheadedness; pt is here for further eval; pt's without other complaints. PCP: nati pt is right hand dominate Time/Duration: > week (2 weeks of leg swelling, 1 week of abd swelling) Symptom Onset: Gradual Symptom Course: Worsening Quality: Cramping Severity Level: 7, Severe Activities at Onset: Rest Context: Home Past Medical History - Provider Review Nursing Documentation Reviewed: Yes - Travel History Have you recently traveled outside [place] w/in the past 3 mons?: No - Past History Past History: Non-Contributing - Infectious Disease Hx of Infectious Diseases: None - Tetanus Immunization Tetanus Immunization: Unknown - Cardiac Hx Cardiac Disorders: No - Pulmonary Hx Respiratory Disorders: No - Neurological Hx Dizziness: Yes - HEENT Hx HEENT Disorder: Yes (READING GLASSES) - Renal Hx Renal Disorder: No - Endocrine/Metabolic Hx Endocrine Disorders: Yes Hx Diabetes Mellitus Type 2: Yes - Hematological/Oncological Hx Blood Disorders: Yes - Integumentary Hx Dermatological Disorder: No - Musculoskeletal/Rheumatological Hx Musculoskeletal Disorders: Yes (LEFT CARPALTUNNEL) Hx Falls: No - Gastrointestinal Hx Gastrointestinal Disorders: No Hx Liver Failure: Yes (liver cancer) - Genitourinary/Gynecological Hx Genitourinary Disorders: No - Psychiatric Hx Psychophysiologic Disorder: No Hx Substance Use: No - Past Surgical History Past Surgical History: Non-Contributing - Surgical History Hx Orthopedic Surgery: Yes Other/Comment: Y90 liver radiation, last session 03/25/17 - Anesthesia Hx Anesthesia Reactions: No Hx Malignant Hyperthermia: No - Suicidal Assessment Feels Threatened In Home Enviroment: No Family/Social History - Physician Review Nursing Documentation Reviewed: Yes Family/Social History: No Known Family HX Smoking Status: Never Smoked Hx Alcohol Use: Yes Hx Substance Use: No Hx Substance Use Treatment: No Allergies/Home Meds Allergies/Adverse Reactions: Allergies No Known Allergies Allergy (Verified 03/26/17 11:13) Home Medications: Home Meds Medication Instructions Recorded Confirmed Alogliptin Alonso/Metformin HCl 1 tab PO BID 03/15/17 03/26/17 [Kazano 12.5-500 mg Tablet] Omeprazole 40 mg PO DAILY 03/15/17 03/26/17 Acetaminophen/Oxycodone Hydr 10 mg PO PRN PRN 03/26/17 03/26/17 [Percocet 10/325 mg Tab] Morphine Sulfate [Morphabond ER] 30 mg PO PRN PRN 03/26/17 03/26/17 Ondansetron HCl [Zofran] 4 mg PO PRN PRN 03/26/17 03/26/17 Review of Systems - Review of Systems Constitutional: Fatigue Eyes: Normal ENT: Normal Respiratory: SOB, Cough, Sputum. absent: Wheezing Cardiovascular: Normal Gastrointestinal: Abdominal Pain, Constipation, Nausea Genitourinary Male: Normal Musculoskeletal: Normal Skin: Normal Neurological: Normal Endocrine: Normal Hemo/Lymphatic: Normal Psychiatric: Normal Physical Exam Vital Signs Reviewed: Yes (decr pulse ox) Vital Signs Temp Pulse Resp BP Pulse Ox 03/26/17 12:08 125/78 03/26/17 11:06 98.6 F 98 H 16 125/75 93 L Temperature: Afebrile Blood Pressure: Normal Pulse: Regular Respiratory Rate: Normal Appearance: Positive for: Ill-Appearing, Other (alert/awake, GCS = 15, oriented x 2, cooperative, NAD, mild resp distress noted) Pain Distress: None Mental Status: Positive for: other (alert/awake, oriented x 2 (not to date/time) ) - Systems Exam Head: Present: Atraumatic, Normocephalic, Other (mild bi-temporal wasting) Pupils: Present: PERRL Extroacular Muscles: Present: EOMI Conjunctiva: Present: Icteric (sclera icteric) Ears: Present: Normal Mouth: Present: Dry, Other (fair dentitions, no drooling/stridor, no exudate/ lesions, uvula/tongue are midline) Pharnyx: Present: Normal, Other (dry oral mucosa) Nose (External): Present: Atraumatic Nose (Internal): Present: Normal Inspection Neck: Present: Normal Range of Motion, Trachea Midline, Other (no nuchal rigidity, no meningeal signs, no step off). No: MIDLINE TENDERNESS Respiratory/Chest: Present: Clear to Auscultation, Good Air Exchange, Other ( poor insp effort; no wheezing/rales/rhonchi; mild tachypenia, no retractions, no accessory muscle use noted) Cardiovascular: Present: Regular Rate and Rhythm, Normal S1, S2, Other (+ slight distant heart sounds, no murmur). No: Murmurs Abdomen: Present: Distention, Normal Bowel Sounds, Other (well nourished male, + gross distention noted, NO fluid wave expressed, + right abd tenderness, no gupta's sign, no mcburney's point tenderness, no guarding/rigidity) Back: Present: Normal Inspection, Other (no midline tenderness, no gross deformities) Upper Extremity: Present: Normal Inspection, Normal ROM, NORMAL PULSES, Neurovascularly Intact, Capillary Refill < 2s. No: Edema Lower Extremity: Present: Edema, NORMAL PULSES, Normal ROM, Neurovascularly Intact, Other (+ b/l lower ext pitting edema +2-3/5, strength 5-/5 grossly intact b/l, no gross deformities noted). No: Latonia's Sign Neurological: Present: GCS=15, CN II-XII Intact, Other (CNII-XII WNL, no facial asymmetries, no slurr speech; oriented x 2 (not to date/time)) Skin: Present: Warm, Other (cap refill ~ 1 sec, no ulcerations, + mild pallor, no petechiae) Psychiatric: Present: Alert Medical Decision Making ED Course and Treatment: 03/26/17 11:58 Impression: AMS, sob/leg swelling, liver cancer with mets i have consider all the differential diagnosis regarding pt's chief medical complaints/clinical findings, including but are not limited to: hepatic encephalopathy/r/o dvt, ascities, likely will need paracentesis A/P: AMS, sob/ascities - labs - iv - xray - us - ua - observe - supportive care 12:00pm - i spoke to Dr Paredes, pt's PCP, made aware, agrees with admission and would like to consult GI/Lia for possible paracentesis pt/family are made aware of pt's medical results agrees with admission Re-evaluation Time: 12:06 Reassessment Condition: Unchanged - Critical Care Critical Care Minutes: 45 minutes Critical Care Time: Excluding Proc Time Narrative Critical Care (Text): 03/26/17 12:06 critical care time: 45min, excluding procedure time, excluding time teaching residents/students/mid-level providers; including initial eval/diagnosis, diagnostic interpretation, re-eval, consultations, final disposition - Lab Interpretations Lab Results: 03/26/17 11:52 03/26/17 11:52 Lab Results 03/26/17 11:52: Ammonia 32 03/26/17 11:52: Sodium 136, Potassium 4.3, Chloride 96 L, Carbon Dioxide 25, Anion Gap 19, BUN 9, Creatinine 0.6 L, Est GFR ( Amer) > 60, Est GFR (Non -Af Amer) > 60, Random Glucose 148 H, Calcium 9.8, Total Bilirubin 5.4 H, AST 138 H, ALT 82 H, Alkaline Phosphatase 222 H, Lactate Dehydrogenase 761 H, Total Creatine Kinase 114, Troponin I < 0.01, NT-Pro-B Natriuret Pep 332, Total Protein 7.0, Albumin 3.0, Globulin 4.0, Albumin/Globulin Ratio 0.7 L 03/26/17 11:52: PT 20.5 H, INR 1.76 H, APTT 35.9 03/26/17 11:52: WBC 8.7, RBC 3.80, Hgb 12.6 L, Hct 36.1 L, MCV 95.0, MCH 33.2, MCHC 34.9, RDW 16.3 H, Plt Count 143, MPV 10.8, Gran % 72.2 H, Lymph % (Auto) 11.7 L, [place] % (Auto) 11.0 H, Eos % (Auto) 4.5, Baso % (Auto) 0.6, Gran # 6.28, Lymph # (Auto) 1.0 L, [place] # (Auto) 1.0 H, Eos # (Auto) 0.4, Baso # (Auto) 0.05 I have reviewed the lab results: Yes Interpretation: Abnormal lab values (abnl LFTs) - RAD Interpretation Narrative RAD Interpretations (Text): 03/26/17 14:00 CXR: HISTORY: sob, hx of liver cancer, recent radiation txt COMPARISON: 03/14/2017 FINDINGS: LUNGS: Bandlike opacity at left base, likely platelike atelectasis. PLEURA: Very small left pleural effusion. No right pleural effusion. No pneumothorax. CARDIOVASCULAR: Mild cardiomegaly. No congestive change. OSSEOUS STRUCTURES: Right glenohumeral osteoarthritis. VISUALIZED UPPER ABDOMEN: Normal. OTHER FINDINGS: None. IMPRESSION: Small left pleural effusion. Left basilar platelike atelectasis. 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 - EKG Interpretation EKG Interpretation (Text): 03/26/17 14:01 NSR at 95 bpm, LAD, no ectpoy, low voltage diffusely, poor r-wave progression, no st changes, ABNL EKG; no gross changes compare with old ekg 03/2017 Interpreted by ED Physician: Yes Type: 12 lead EKG Comparison: Similar to previous EKG - Medication Orders Current Medication Orders: Discontinued Medications Furosemide (Lasix) 40 mg IVP STAT STA Stop: 03/26/17 11:48 Last Admin: 03/26/17 12:08 Dose: 40 mg MAR Blood Pressure Document 03/26/17 12:08 LA (Rec: 03/26/17 12:08 SAGE SWANSON-PC) Blood Pressure Blood Pressure (100/60-150/90) 125/78 IVP Administration Document 03/26/17 12:08 LA (Rec: 03/26/17 12:08 SAGE SWANSON-PC) Charges for Administration # of IVP Administrations 1 Disposition/Present on Arrival - Present on Arrival Any Indicators Present on Arrival: No History of DVT/PE: No History of Uncontrolled Diabetes: No Urinary Catheter: No History of Decub. Ulcer: No History Surgical Site Infection Following: None - Disposition Have Diagnosis and Disposition been Completed?: Yes Diagnosis: Ascites of liver, Pain and swelling of lower leg, Liver cancer, primary, with metastasis from liver to other site, Acute hepatic encephalopathy, Shortness of breath Disposition: HOSPITALIZED Disposition Time: 12:00 Patient Plan: Admission Patient Problems: Current Active Problems Problem Status Onset Acute hepatic encephalopathy Acute Ascites of liver Acute Liver cancer, primary, with metastasis from liver to other site Acute Pain and swelling of lower leg Acute Shortness of breath Acute Condition: FAIR
[2017-03-26 12:22] LABS: BASO # 0.05 K/mm3 (0.0-2.0); BASO % 0.6 % (0.0-3.0); EOS # 0.4 (0.0-0.7); EOS % 4.5 % (1.5-5.0); GRAN # 6.28 (1.4-6.5); GRAN % 72.2 % (50.0-68.0); HEMOGLOBIN 12.6 g/dL (14.0-18.0); LYMPH % 11.7 % (22.0-35.0); MEAN CORPUSCULAR HEMOGLOBIN 33.2 pg (25.0-35.0); MEAN CORPUSCULAR HGB CONC 34.9 g/dl (31.0-37.0); MEAN PLATELET VOLUME 10.8 fl (7.0-11.0); RBC 3.8 10^6/uL (3.5-6.1); RED CELL DISTRIBUTION WIDTH 16.3 % (11.5-14.5); WHITE BLOOD COUNT 8.7 10^3/ul (4.5-11.0)
[2017-03-26 12:30] LABS: ALB/GLOB RATIO 0.7 (1.1-1.8); ALT/SGPT 82 U/L (7-56); AST/SGOT 138 U/L (17-59); BLOOD UREA NITROGEN 9 mg/dL (7-21); CALCIUM 9.8 mg/dL (8.4-10.5); GFR AFRICAN-AMERICAN > 60; GFR NON-AFRICAN AMERICAN > 60
[2017-03-26 12:33] LABS: INR 1.76 (0.93-1.08); PARTIAL THROMBOPLASTIN TIME 35.9 Seconds (25.1-36.5); PROTHROMBIN TIME 20.5 SECONDS (9.4-12.5)
[2017-03-26 12:51] LABS: B-TYPE NATRIURETIC PEPTIDE 332 pg/mL (0-450); TROPONIN I < 0.01 ng/mL
--- NOTE | 2017-03-26 13:51 | RAD ---
HISTORY: sob, hx of liver cancer, recent radiation txt COMPARISON: 03/14/2017 FINDINGS: LUNGS: Bandlike opacity at left base, likely platelike atelectasis. PLEURA: Very small left pleural effusion. No right pleural effusion. No pneumothorax. CARDIOVASCULAR: Mild cardiomegaly. No congestive change. OSSEOUS STRUCTURES: Right glenohumeral osteoarthritis. VISUALIZED UPPER ABDOMEN: Normal. OTHER FINDINGS: None. IMPRESSION: Small left pleural effusion. Left basilar platelike atelectasis.
[2017-03-26 14:09] LABS: VENOUS BLOOD GAS BASE EXCESS 0.7 mmol/L (0.0-2.0); VENOUS BLOOD GAS PO2 46 mm/Hg (30-55); VENOUS BLOOD PH 7.41 (7.32-7.43)
[2017-03-26 14:12] LABS: URINE BILIRUBIN SMALL (NEGATIVE); URINE BLOOD NEGATIVE (NEGATIVE); URINE COLOR DARK YELLOW (YELLOW); URINE GLUCOSE (UA) NEGATIVE (NEGATIVE); URINE LEUKOCYTE ESTERASE NEGATIVE Leu/uL (NEGATIVE); URINE NITRATE NEGATIVE (NEGATIVE); URINE PROTEIN NEGATIVE mg/dL (<30 mg/dL)
[2017-03-26 14:13] LABS: URINE APPEARANCE SLIGHT-CLOUDY (CLEAR)
--- NOTE | 2017-03-26 14:17 | HP ---
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 The patient is status post Y90 treatment without benefit. Recently started external beam radiation in [place] under the care of Dr. Posadas. The patient was found by the family today after a week of radiation to have increased swelling in his abdomen, his legs and particularly in his feet. The patient was brought to the emergency room, was evaluated, had massive ascites with peripheral edema and admitted to the hospital. PHYSICAL EXAMINATION: GENERAL: Shows a well-developed, but slightly thin white male with distended abdomen and swollen feet, otherwise without major complaints. CHEST: Shows decreased breath sounds at the right base with rhonchi. ABDOMEN: Distended. Positive fluid wave and palpable mass in the right upper quadrant. EXTREMITIES: Show 2-3+ pedal edema to the thighs with some presacral edema. IMPRESSION: Decompensated liver failure secondary to hepatocarcinoma of the liver with massive ascites and edema. The patient states that his review of systems is remarkable only for swelling in his legs and abdomen, some loss of appetite and some weakness. The extent of the hepatoma is approximately 18 months and he does have a history of chronic cirrhosis. The patient also is a nondrinker, nonsmoker. He has been taking pain medication at home and he has no allergies. Bhavin Paredes MD
--- NOTE | 2017-03-26 15:18 | US ---
HISTORY: Leg pain and swelling. Evaluate for DVT PHYSICIAN(S): Axel Hopper MD. TECHNIQUE: Duplex sonography and color-flow Doppler with graded compression were used to evaluate the deep venous systems of both lower extremities. The exam is limited by edema FINDINGS: The visualized deep venous systems of both lower extremities are sonographically normal and compressible. Normal wave forms and augmentation are seen. There is no sonographic evidence for deep venous thrombosis in the visualized segments of both lower extremities. IMPRESSION: No sonographic evidence for deep venous thrombosis in the visualized segments of both lower extremities.
[2017-03-26] MEDS: Morphine 2 mg/ml ISec IVP PRN (16:06)
[2017-03-26] MEDS ORDERED: Pneumococcal 23-Valent Vaccine IM ONE (18:15)
[2017-03-26] MEDS ORDERED: Influenza Vaccine 60 mcg/0.5 mL SYR (4YR UP) IM ONE (18:15)
[2017-03-26 19:07] LABS: VENOUS BLOOD GAS BASE EXCESS 5.8 mmol/L (0.0-2.0); VENOUS BLOOD GAS PO2 25 mm/Hg (30-55); VENOUS BLOOD PH 7.48 (7.32-7.43)
[2017-03-26 23:02] LABS: VENOUS BLOOD GAS BASE EXCESS 1.3 mmol/L (0.0-2.0); VENOUS BLOOD GAS PO2 210 mm/Hg (30-55); VENOUS BLOOD PH 7.45 (7.32-7.43)
[2017-03-27] MEDS: Morphine 2 mg/ml ISec IVP PRN (05:38)
[2017-03-27 06:07] VITALS: O2SAT 93
[2017-03-27] MEDS ORDERED: Morphine 15 mg Immediate Release Tab PO PRN (06:50)
[2017-03-27] MEDS ORDERED: MORPHINE PO PRN (07:15)
[2017-03-27] MEDS ORDERED: Metoprolol 1 mg/ml Inj IVP ONE ×2 (07:49→07:52)
[2017-03-27] MEDS ORDERED: HYDROmorphone 0.5 mg/0.5 ml ISec IVP STA (07:49)
[2017-03-27] MEDS ORDERED: Morphine 4 mg/ml ISec IV STA (07:57)
--- NOTE | 2017-03-27 08:22 | CARD ---
APPROVED REPORT EKG Measurement Heart [id number] [id number] [id number] <Conclusion> Sinus rhythm with premature atrial complex Left axis deviation Low voltage QRS Prolonged QTc No change
[2017-03-27] MEDS ORDERED: Oxycodone/Acetaminophen 5/325 mg Tab PO PRN (09:31)
--- NOTE | 2017-03-27 09:53 | CON ---
DATE: 03/26/2017 HISTORY OF PRESENT ILLNESS: This patient was seen and evaluated earlier today. This is a 71-year-old patient with past medical history of hepatoma, metastatic to the right flank area, right rib cage, ascites; status post Yttrium-90 treatment. The patient also has been getting external beam radiation at [place]. The Yttrium-90 infusion was given at [facility]. The patient is being followed by Dr. Posadas at [facility]. The patient was noticed to have increased distention of the abdomen. The patient was brought to the emergency room because of increased abdominal distention, ascites, leg edema, and weakness. OTHER PAST MEDICAL HISTORY: Positive as above. History of diabetes mellitus. ALLERGIES: NO KNOWN DRUG ALLERGIES. SOCIAL HISTORY: Denies smoking, alcohol. REVIEW OF SYSTEMS: Positive as above. FAMILY HISTORY: Noncontributory. On examination, the patient is lying on the bed, not in acute distress. LABORATORY DATA: Hemoglobin 12.6, hematocrit 36.1, WBC is 8.7, platelets 143. Total bilirubin went up to 5.4, AST 138, ALT 82, alkaline phosphatase 222. IMPRESSION: This is a 71-year-old patient with hepatocellular carcinoma, status post Yttrium-90 infusion at [facility], was followed by Dr. Carrera. The patient is now having external radiation for right side mass. The patient is jaundiced. This 71-year-old patient with hepatocellular carcinoma with a large chest wall mass at the right lung base with destruction of right 8th rib, on radiation treatment. PLAN 1. Ultrasound scan of the abdomen to further evaluate the liver. 2. Carotid Doppler to evaluate the portal vein and the hepatic vein, involvement of the hepatoma of the portal vein is not uncommon. This will cause worsening of the ascites. Presently, the patient is tolerating the diet. We will discuss with the patient's daughter, Janice Ku, #[phone]. Thank you very much for allowing us to participate in the care of the patient. Meliton Fitzgerald MD [facility]
[2017-03-27] MEDS ORDERED: Morphine 30 mg SR Tab PO SCH (10:00)
--- NOTE | 2017-03-27 11:42 | US ---
HISTORY: Liver cancer COMPARISON: Comparison made with CT scan of the abdomen 02/11/2017. TECHNIQUE: Sonographic evaluation of the abdomen. FINDINGS: LIVER: The liver measures approximately 16 cm in CC dimension liver exhibits nodular surface contour and heterogeneous increased heterogeneous echogenicity. There are at least 3 discrete hyperechoic of foci seen in the liver, the 1st measuring approximately 2.4 cm and the 2nd in the posterior right lobe liver measuring approximately 5.0 cm mid. 3rd hyperechoic focus left lobe liver measuring approximately 2.9 cm in greatest dimension. Moderately large amount of abdominal ascites present. GALLBLADDER: Gallbladder is distended. No obvious sonographic Art sign COMMON BILE DUCT: Measures 4.1 mm. No stones. No dilatation. PANCREAS: Pancreas is not well delineated due to bowel gas and ascites. RIGHT KIDNEY: Right kidney measures approximately 11.0 x 5.4 x 5.6 cm. Normal echogenicity. No calculus, mass, or hydronephrosis. LEFT KIDNEY: Left kidney measures approximately 11.0 x 6.2 X 5.9cm. Normal echogenicity. No calculus, mass, or hydronephrosis. SPLEEN: Spleen measures approximately 10.5 cm. No obvious splenic mass AORTA: No aneurysmal dilatation. IVC: Unremarkable. OTHER FINDINGS: None. IMPRESSION: Nodular heterogeneous echogenic liver. Abdominal ascites. There are at least 3 discrete hyperechoic of foci seen in the liver, the 1st measuring approximately 2.4 cm and the 2nd in the posterior right lobe liver measuring approximately 5.0 cm mid. 3rd hyperechoic focus left lobe liver measuring approximately 2.9 cm in greatest dimension.
[2017-03-27] MEDS: Pantoprazole 40 mg EC Tab PO SCH (12:47)
[2017-03-27] MEDS: Morphine 30 mg SR Tab PO SCH ×2 (12:47→21:46)
--- NOTE | 2017-03-27 14:13 | PN ---
DATE: SUBJECTIVE: This is a 71-year-old white male admitted to the hospital with peripheral edema, ascites, history of hepatoma with mets to the right rib cage and wall. Patient is complaining of cough and sputum production. He is afebrile. Vital signs are stable. He still has some distended abdomen. There are leg swelling in both lower extremities. He was seen in consultation by Dr. Fitzgerald. We are awaiting possible consultation for paracentesis. He does have a left pleural effusion, but no pneumonia. He has some . His sputum is discolored. We will do a culture and instructed the patient on some p.o. antibiotics also for prophylaxis against spontaneous bacterial peritonitis. PLAN: For diuresis and paracentesis and continued treatment of his underlying hepatoma. Bhavin Paredes MD
--- NOTE | 2017-03-28 00:14 | PN ---
DATE: 03/27/2017 SUBJECTIVE: This patient was seen and evaluated earlier. Discussed with the nursing staff and also with the patient's daughter. PHYSICAL EXAMINATION: GENERAL: Patient is comfortable, tolerating the diet. VITAL SIGNS: Temperature is 98.9, pulse 92, blood pressure 95/60. HEENT: Atraumatic, anicteric. NECK: Supple. HEART: S1, S2 heard. LUNGS: Bilateral air entry present, slightly reduced air entry in the base. ABDOMEN: Softly distended, ascites present, hepatomegaly. LABORATORY DATA: Hemoglobin 12.6, hematocrit 36.1, WBC is 8.7, platelets 143. BUN 9, creatinine 0.8. Patient did have an abdominal ultrasound done, three hyperechoic lesions noticed, one measuring about 5 cm, another one is about 2.4, the third one is about 2.9; CBD normal; no gallstones. Patient also had an abdominal Doppler done, results still pending. IMPRESSION: This 71-year-old patient with cirrhosis of the liver, hepatic lesions, hepatocellular carcinoma, status post Y90 treatment, now receiving external radiation for large chest wall lesion, the right chest wall mass at the right lung base with body destruction of the eighth rib. Sonogram also showed gallstones. RECOMMENDATIONS: 1. Follow up of the portal vein Doppler, partial thrombosis - portal vein thrombosis would make the ascites refractory. May need periodic paracentesis as needed. Patient does have ascites and awaiting for interventional radiology for a paracentesis in the a.m. 2. Patient is due to have external radiation therapy for this chest large mass lesion on the right side. 3. I did discuss with the patient's daughter at length. Patient is being followed by the oncologist, Dr. Posadas in [facility]. The etiology for the patient has also been evaluated by , hammer driver at the [facility]. We will discuss with the oncologist regarding the previous workup done for the cirrhosis. Thank you very much for allowing us to participate in the care of the patient. Meliton Fitzgerald MD [facility]
[2017-03-28 06:12] VITALS: RESP 22; TEMP 97.5
[2017-03-28] MEDS: Pantoprazole 40 mg EC Tab PO SCH (09:49)
[2017-03-28] MEDS: Morphine 30 mg SR Tab PO SCH (09:49)
--- NOTE | 2017-03-28 09:58 | US ---
PROCEDURE: Portal vein duplex ultrasound. CLINICAL HISTORY: Cirrhosis. Deteriorating liver function. Hepatoma. PHYSICIAN(S): Axel Hopper M.D. FINDINGS: The exam is very limited. The visualized liver parenchyma is very heterogeneous and cirrhotic in appearance. A discrete mass is not visualized on these limited images though an infiltrative hepatoma could be present. The extrahepatic portal vein is small and partially thrombosed. The hepatic artery is hypertrophied. There is a small to moderate amount of ascites in the upper abdomen IMPRESSION: 1. 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 Small to moderate amount of ascites in the upper abdomen
--- NOTE | 2017-03-28 11:26 | PN ---
DATE: A 71-year-old white male with a history of metastatic hepatocellular carcinoma, metastatic to the right rib cage and chest wall. Patient is on radiation therapy, status post Y90 treatment without success. Patient has ascites and peripheral edema. He is for paracentesis today. He was seen in consultation by Dr. Fitzgerald. He is tolerating his diet. He has less ____ and he has less pain. Still has the mass palpable in the right upper quadrant. Plan is for paracentesis and discharge home on diuretics. Bhavin Paredes MD
[2017-03-28 15:48] VITALS: BP 110/68
--- NOTE | 2017-03-28 16:00 | US ---
PROCEDURE: Ultrasound guided paracentesis. HISTORY: Cirrhosis. Hepatoma. New onset ascites with abdominal distention PHYSICIAN(S): Axel Hopper MD. TECHNIQUE: The relative risks and indications for the procedure were explained to the patient and informed written consent obtained. Sonography of the abdomen was performed in a supine position. This revealed a small amount of non-loculated ascites, greatest in the right mid abdomen. A puncture site was selected and the area was prepped and draped in the usual sterile fashion. 1% Xylocaine was used to anesthetize the skin and soft tissues. A 7 [place] paracentesis catheter was trocared into the right mid abdomenand 750 cc of serosanguineous fluid aspirated. A cytology specimen was sent. IMPRESSION: Ultrasound-guided paracentesis in the right mid av. 750 cc of fluid were aspirated. Cytology was sent.
[2017-03-28 17:20] VITALS: PULSE 95
== END 2017-03-28 17:31 | disposition home or self-care (01) | DRG 435 ==
LOC: ED 10:33 → ERH 12:00 → 2RNO 14:11
PROVIDERS: ADMIT Internal Medicine; ATTEND Internal Medicine
PROC: 0W9G3ZZ Drainage of Peritoneal Cavity, Percutaneous Approach (ICD-10-PCS; principal; 2017-03-28 16:00)
DX: C22.0 Liver cell carcinoma (principal); K72.00 Acute and subacute hepatic failure without coma; R18.8 Other ascites; J90 Pleural effusion, not elsewhere classified; C79.89 Secondary malignant neoplasm of other specified sites; E11.9 Type 2 diabetes mellitus without complications; K74.60 Unspecified cirrhosis of liver